=== PATIENT | female | born 1945 ===

== ENCOUNTER 2023-01-31 13:05 | Inpatient (IN) | payer OTHER ==
[2023-01-31] MEDS ORDERED: HALOPERIDOL LACTATE 5 MG/ML IM ONE ×4 (13:43→14:07)
[2023-01-31] MEDS ORDERED: LORazepam 2 MG/ML SDV VIAL IM ONE (14:29)
[2023-01-31 16:12] LABS: BASO % 0.1 % (0-2.0); EOS % 0.1 % (0-4.5); HEMATOCRIT 46.8 % (32.4-45.2); HEMOGLOBIN 15.4 GM/dL (10.7-15.3); LYMPH % 11.1 % (8-40); MCHC 32.9 g/dl (32.0-36.0); MEAN CELL VOLUME 91.2 fl (80-96); MEAN PLT VOLUME 9.6 fl (7.5-11.1); MONO % 13.4 % (3.8-10.2); NEUT % 75.3 % (42.8-82.8); PLATELET COUNT 296 10^3/uL (134-434); RBC 5.14 M/mm3 (3.60-5.2); RDW 14.3 % (11.6-15.6); WHITE BLOOD COUNT 11.8 K/mm3 (4.0-10.0)
[2023-01-31 16:19] LABS: EPI CELLS 13 /uL (0-25.1); HYALINE CASTS 5 /uL (0-3.1); URINE APPEARANCE CLOUDY; URINE BILIRUBIN 2+ (NEGATIVE); URINE COLOR ORANGE; URINE GLUCOSE (UA) NEGATIVE (NEGATIVE); URINE KETONE NEGATIVE (NEGATIVE); URINE LEUK ESTERASE 2+ (NEGATIVE); URINE NITRITE POSITIVE (NEGATIVE); URINE PROTEIN TRACE (NEGATIVE); URINE RBC 29 /uL (0-23.9); URINE WBC 33 /uL (0-25.8)
[2023-01-31 16:50] LABS: URINE BACTERIA 3.1 /uL (0-1359)
[2023-01-31 17:43] LABS: CHLORIDE 107 mmol/L (98-107); SODIUM 138 mmol/L (136-145)
[2023-01-31 17:47] LABS: ALBUMIN 3.2 g/dl (3.4-5.0); BLOOD UREA NITROGEN 77.2 mg/dL (7-18); CALCIUM 9.6 mg/dL (8.5-10.1); CO2 16 mmol/L (21-32); GLUCOSE,RANDOM 124 mg/dL (74-106)
[2023-01-31 17:50] LABS: CREATININE 4.1 mg/dL (0.55-1.3); SGOT/AST 120 U/L (15-37); SGPT/ALT 46 U/L (13-61)
[2023-01-31 17:52] LABS: TOT PROT 7.8 g/dl (6.4-8.2)
[2023-01-31 17:53] LABS: ALK PHOS 80 U/L (45-117)
[2023-01-31 17:55] LABS: ANION GAP 15 MMOL/L (8-16); POTASSIUM 7.4 mmol/L (3.5-5.1)
[2023-01-31 19:20] LABS: CHLORIDE 106 mmol/L (98-107); SODIUM 138 mmol/L (136-145)
[2023-01-31 19:23] LABS: BLOOD UREA NITROGEN 79.1 mg/dL (7-18); CO2 19 mmol/L (21-32); GLUCOSE,RANDOM 134 mg/dL (74-106)
[2023-01-31 19:24] LABS: CALCIUM 9.3 mg/dL (8.5-10.1); MAGNESIUM 3.6 mg/dL (1.8-2.4)
[2023-01-31] MEDS ORDERED: SODIUM CHLORIDE 0.9% 500 ML INFUS.BAG IV ONE (19:24)
[2023-01-31 19:27] LABS: CREATININE 4.4 mg/dL (0.55-1.3)
[2023-01-31 20:00] LABS: ANION GAP 13 MMOL/L (8-16); POTASSIUM 7.9 mmol/L (3.5-5.1)
[2023-01-31 20:35] LABS: LACTIC ACID 4.8 mmol/L (0.4-2.0)
[2023-01-31] MEDS ORDERED: CALCIUM GLUC IN NACL, ISO-OSM 1 GM/50 ML BAG IVPB ONE ×2 (20:38→21:10)
[2023-01-31] MEDS ORDERED: ALBUTEROL SO4 0.5 % INH SOLN 2.5 MG/0.5 ML VIAL.NEB. NEB ONE ×2 (20:39→21:30)
[2023-01-31] MEDS ORDERED: DEXTROSE 50%-WATER 25 GM/50 ML DISP.SYRIN IVPUSH PRN (20:40)
[2023-01-31] MEDS ORDERED: INSULIN REGULAR HUMAN 100 UNITS/ML *VIAL IVPUSH ONE ×2 (20:40→21:06)
[2023-01-31] MEDS ORDERED: ALBUTEROL SO4 0.083% IH SOL 2.5 MG/3 ML VIAL.NEB. NEB ONE (21:10)
[2023-01-31] MEDS ORDERED: DEXTROSE 50%-WATER 25 GM/50 ML DISP.SYRIN ONE (21:10)
[2023-01-31 21:22] LABS: INR 1.1 (0.83-1.09); PROTHROMBIN TIME (PATIENT) 12.7 SEC (9.7-13.0)
[2023-01-31 21:25] LABS: ACTIVATED PTT 26.2 SECONDS (25.2-36.5)
[2023-01-31] MEDS ORDERED: ALBUTEROL SO4 0.083% IH SOL 2.5 MG/3 ML VIAL.NEB. NEB PRN (22:02)
[2023-02-01 00:05] LABS: VENOUS BASE EXCESS -7.7 mmol/L (-2-2); VENOUS O2 SATURATION 31.7 % (70-80); VENOUS PCO2 37.7 mmHg (38-52); VENOUS PH 7.298 (7.310-7.410)
[2023-02-01] MEDS ORDERED: LEVOTHYROXINE SODIUM 100 MCG 5 ML VIAL IVPUSH ONE (00:07)
[2023-02-01 00:21] LABS: CHLORIDE 110 mmol/L (98-107); SODIUM 141 mmol/L (136-145)
[2023-02-01 00:22] LABS: CALCIUM 9.1 mg/dL (8.5-10.1)
[2023-02-01 00:23] LABS: GLUCOSE,RANDOM 115 mg/dL (74-106)
[2023-02-01 00:27] LABS: CREATININE 4.4 mg/dL (0.55-1.3)
[2023-02-01 00:32] LABS: LACTIC ACID 3.7 mmol/L (0.4-2.0)
[2023-02-01] MEDS ORDERED: LACTATED RINGERS SOLUTION 1000 ML INFUS.BAG IV ONE (00:47)
[2023-02-01 01:10] LABS: CO2 17 mmol/L (21-32)
[2023-02-01 01:14] LABS: ANION GAP 14 MMOL/L (8-16); POTASSIUM 7.2 mmol/L (3.5-5.1)
[2023-02-01] MEDS ORDERED: DEXTROSE 50%-WATER 25 GM/50 ML DISP.SYRIN IVPUSH ONE (01:34)
[2023-02-01] MEDS ORDERED: INSULIN REGULAR HUMAN 100 UNITS/ML *VIAL IVPUSH ONE (01:35)
[2023-02-01] MEDS ORDERED: CALCIUM GLUCONATE 10% - 1,000 MG/10 ML VIAL IVPB ONE (01:36)
[2023-02-01] MEDS ORDERED: CALCIUM CHLORIDE 1 GM/10 ML *DISP.SYRIN ONE (01:48)
[2023-02-01] MEDS ORDERED: DEXTROSE 5%-WATER 100 ML IVPB ONE (01:49)
[2023-02-01] MEDS ORDERED: CALCIUM GLUC IN NACL, ISO-OSM 1 GM/50 ML BAG IVPB ONE (01:52)
[2023-02-01] MEDS ORDERED: DEXTROSE 50%-WATER 25 GM/50 ML DISP.SYRIN ONE (01:52)
[2023-02-01] MEDS: PIPERACILLIN/TAZOB 2.25 GM 2.25 GM in DEXTROSE 5%-WATER - 50 ML IVPB SCH ×4 (04:00→20:47)
[2023-02-01] MEDS ORDERED: SODIUM CHLORIDE 1,000 ML IV SCH (06:45)
[2023-02-01] MEDS ORDERED: LEVOTHYROXINE SODIUM 100 MCG 5 ML VIAL IVPUSH SCH (07:00)
[2023-02-01] MEDS ORDERED: LEVOTHYROXINE NA 75 MCG TABLET (FP) PO SCH (07:00)
[2023-02-01] MEDS: HEPARIN NA (PORCINE) 5,000 UNITS/ML 1ML VIAL SQ SCH ×3 (07:17→21:07)
[2023-02-01] MEDS ORDERED: SODIUM CHLORIDE 0.9% 500 ML INFUS.BAG IV ONE (09:10)
[2023-02-01] MEDS ORDERED: SODIUM CHLORIDE 1,000 ML IV STA (09:40)
[2023-02-01] MEDS ORDERED: SODIUM ZIRCONIUM CYCLOSILICATE (LOKELMA) 5 GM PACKET PO SCH (10:00)
[2023-02-01] MEDS: SODIUM CHLORIDE 0.45% 1,000 ML IV SCH (10:58)
[2023-02-01 12:23] LABS: HEMATOCRIT 37.4 % (32.4-45.2); HEMOGLOBIN 12.5 GM/dL (10.7-15.3); MCH 30.4 pg (25.7-33.7); MCHC 33.3 g/dl (32.0-36.0); MEAN CELL VOLUME 91.2 fl (80-96); MEAN PLT VOLUME 9.7 fl (7.5-11.1); PLATELET COUNT 217 10^3/uL (134-434); RDW 14.6 % (11.6-15.6); WHITE BLOOD COUNT 8.3 K/mm3 (4.0-10.0)
[2023-02-01 12:30] LABS: INR 1.07 (0.83-1.09); PROTHROMBIN TIME (PATIENT) 12.4 SEC (9.7-13.0)
[2023-02-01 12:47] LABS: ANISOCYTOSIS 1+; MACROCYTOSIS 1+
[2023-02-01] MEDS: VANCOMYCIN ORAL SOLUTION 125 MG/2.5 ML PO SCH ×2 (12:49→18:48)
[2023-02-01 12:51] LABS: CHLORIDE 112 mmol/L (98-107); SODIUM 142 mmol/L (136-145)
[2023-02-01 12:55] LABS: BLOOD UREA NITROGEN 83.3 mg/dL (7-18); CO2 18 mmol/L (21-32); GLUCOSE,RANDOM 98 mg/dL (74-106); MAGNESIUM 2.8 mg/dL (1.8-2.4)
[2023-02-01 12:58] LABS: CREATININE 3.9 mg/dL (0.55-1.3); PHOSPHOROUS 3.8 mg/dL (2.5-4.9); SGOT/AST 96 U/L (15-37); SGPT/ALT 33 U/L (13-61)
[2023-02-01 12:59] LABS: BILIRUBIN,TOTAL 0.7 mg/dL (0.2-1)
[2023-02-01 13:01] LABS: ALK PHOS 59 U/L (45-117)
[2023-02-01 13:18] LABS: ALBUMIN 2.3 g/dl (3.4-5.0); ANION GAP 12 MMOL/L (8-16); CALCIUM 10.8 mg/dL (8.5-10.1); LACTIC ACID 4.4 mmol/L (0.4-2.0); POTASSIUM 6.2 mmol/L (3.5-5.1)
[2023-02-01] MEDS ORDERED: SODIUM CHLORIDE 500 ML IV STA (13:35)
[2023-02-01] MEDS ORDERED: SODIUM BICARBONATE 8.4% 50 MEQ/50 ML DISP.SYRIN IVPUSH ONE (13:35)
[2023-02-01] MEDS: SODIUM ZIRCONIUM CYCLOSILICATE (LOKELMA) 5 GM PACKET PO SCH ×3 (14:32→21:07)
[2023-02-01] MEDS ORDERED: SODIUM BICARBONATE 8.4% - 50 MEQ in DEXTROSE 5%-WATER - 50 ML IVPB ONE (15:00)
[2023-02-01] MEDS ORDERED: SODIUM ZIRCONIUM CYCLOSILICATE (LOKELMA) 5 GM PACKET PO ONE (20:39)
[2023-02-02] MEDS: VANCOMYCIN ORAL SOLUTION 125 MG/2.5 ML PO SCH ×3 (00:17→12:23)
[2023-02-02] MEDS: SODIUM CHLORIDE 0.45% 1,000 ML IV SCH ×2 (00:17→12:24)
[2023-02-02] MEDS: PIPERACILLIN/TAZOB 2.25 GM 2.25 GM in DEXTROSE 5%-WATER - 50 ML IVPB SCH ×5 (02:22→23:41)
[2023-02-02] MEDS: HEPARIN NA (PORCINE) 5,000 UNITS/ML 1ML VIAL SQ SCH ×3 (05:43→23:42)
[2023-02-02] MEDS ORDERED: LEVOTHYROXINE SODIUM 100 MCG 5 ML VIAL IVPUSH SCH (07:00)
[2023-02-02 08:29] LABS: HEMATOCRIT 32.1 % (32.4-45.2); HEMOGLOBIN 10.7 GM/dL (10.7-15.3); MCH 30.2 pg (25.7-33.7); MCHC 33.4 g/dl (32.0-36.0); MEAN CELL VOLUME 90.4 fl (80-96); PLATELET COUNT 176 10^3/uL (134-434); RBC 3.55 M/mm3 (3.60-5.2); RDW 14.3 % (11.6-15.6); WHITE BLOOD COUNT 6.6 K/mm3 (4.0-10.0)
[2023-02-02 08:48] LABS: POTASSIUM 3.9 mmol/L (3.5-5.1)
[2023-02-02 08:57] LABS: ALBUMIN 2.3 g/dl (3.4-5.0); BLOOD UREA NITROGEN 65.8 mg/dL (7-18); MAGNESIUM 2.7 mg/dL (1.8-2.4)
[2023-02-02 09:01] LABS: BILIRUBIN,TOTAL 0.5 mg/dL (0.2-1); CREATININE 2.9 mg/dL (0.55-1.3); PHOSPHOROUS 3.6 mg/dL (2.5-4.9); TOT PROT 5.7 g/dl (6.4-8.2)
[2023-02-02 09:06] LABS: CALCIUM 7.7 mg/dL (8.5-10.1)
[2023-02-02] MEDS ORDERED: LORazepam 2 MG/ML SDV VIAL IVPUSH PRN (12:14)
[2023-02-02] MEDS: SODIUM ZIRCONIUM CYCLOSILICATE (LOKELMA) 5 GM PACKET PO SCH ×2 (12:24→23:42)
[2023-02-02 12:26] LABS: ERYTHROCYTE SEDIMENTATION RATE 101 mm/hr (0-30)
[2023-02-02] MEDS ORDERED: SODIUM CHLORIDE 0.45% 1,000 ML IV SCH (12:32)
[2023-02-03] MEDS: PIPERACILLIN/TAZOB 2.25 GM 2.25 GM in DEXTROSE 5%-WATER - 50 ML IVPB SCH ×4 (03:10→23:08)
[2023-02-03] MEDS: LIOTHYRONINE SODIUM 5 MCG TABLET PO SCH (06:41)
[2023-02-03] MEDS: HEPARIN NA (PORCINE) 5,000 UNITS/ML 1ML VIAL SQ SCH ×3 (06:41→23:12)
[2023-02-03] MEDS: LEVOTHYROXINE SODIUM 100 MCG 5 ML VIAL IVPUSH SCH (06:41)
[2023-02-03 07:43] LABS: INR 1.08 (0.83-1.09); PROTHROMBIN TIME (PATIENT) 12.5 SEC (9.7-13.0)
[2023-02-03 07:52] LABS: POTASSIUM 3.4 mmol/L (3.5-5.1)
[2023-02-03 07:54] LABS: CALCIUM 7.8 mg/dL (8.5-10.1)
[2023-02-03 07:55] LABS: ALBUMIN 2.3 g/dl (3.4-5.0); BLOOD UREA NITROGEN 47.3 mg/dL (7-18)
[2023-02-03 07:59] LABS: TOT PROT 5.8 g/dl (6.4-8.2)
[2023-02-03 08:00] LABS: BILIRUBIN,TOTAL 0.4 mg/dL (0.2-1)
[2023-02-03 08:09] LABS: HEMATOCRIT 31.1 % (32.4-45.2); HEMOGLOBIN 10.1 GM/dL (10.7-15.3); MCH 30.2 pg (25.7-33.7); MCHC 32.6 g/dl (32.0-36.0); MEAN CELL VOLUME 92.7 fl (80-96); MEAN PLT VOLUME 9.9 fl (7.5-11.1); PLATELET COUNT 172 10^3/uL (134-434); RBC 3.36 M/mm3 (3.60-5.2); RDW 14.3 % (11.6-15.6); WHITE BLOOD COUNT 7.4 K/mm3 (4.0-10.0)
[2023-02-03 09:20] LABS: ANISOCYTOSIS 0; MACROCYTOSIS 0
[2023-02-03] MEDS: SODIUM ZIRCONIUM CYCLOSILICATE (LOKELMA) 5 GM PACKET PO SCH (10:14)
[2023-02-03] MEDS: SODIUM CHLORIDE 0.45% 1,000 ML IV SCH (14:32)
[2023-02-04] MEDS: PIPERACILLIN/TAZOB 2.25 GM 2.25 GM in DEXTROSE 5%-WATER - 50 ML IVPB SCH ×4 (04:10→20:58)
[2023-02-04] MEDS: HEPARIN NA (PORCINE) 5,000 UNITS/ML 1ML VIAL SQ SCH ×3 (05:48→22:31)
[2023-02-04] MEDS: LEVOTHYROXINE SODIUM 100 MCG 5 ML VIAL IVPUSH SCH (05:59)
[2023-02-04] MEDS: LIOTHYRONINE SODIUM 5 MCG TABLET PO SCH (05:59)
[2023-02-04] MEDS: SODIUM CHLORIDE 0.45% 1,000 ML IV SCH ×2 (14:36→20:58)
[2023-02-04] MEDS ORDERED: ALBUTEROL SO4 0.083% IH SOL 2.5 MG/3 ML VIAL.NEB. NEB PRN (21:39)
[2023-02-04] MEDS ORDERED: LORazepam 2 MG/ML SDV VIAL IVPUSH PRN (21:39)
[2023-02-05] MEDS: SODIUM CHLORIDE 0.45% 1,000 ML IV SCH ×3 (01:28→21:18)
[2023-02-05] MEDS: PIPERACILLIN/TAZOB 2.25 GM 2.25 GM in DEXTROSE 5%-WATER - 50 ML IVPB SCH ×4 (02:30→21:18)
[2023-02-05] MEDS: HEPARIN NA (PORCINE) 5,000 UNITS/ML 1ML VIAL SQ SCH ×3 (05:55→21:18)
[2023-02-05] MEDS: LEVOTHYROXINE SODIUM 100 MCG 5 ML VIAL IVPUSH SCH (07:04)
[2023-02-05] MEDS: LIOTHYRONINE SODIUM 5 MCG TABLET PO SCH (07:04)
[2023-02-05 16:06] LABS: BASO % 0.2 % (0-2.0); EOS % 0.5 % (0-4.5); HEMATOCRIT 31.9 % (32.4-45.2); HEMOGLOBIN 10.5 GM/dL (10.7-15.3); LYMPH % 10.2 % (8-40); MCH 29.6 pg (25.7-33.7); MEAN CELL VOLUME 89.7 fl (80-96); MEAN PLT VOLUME 8.5 fl (7.5-11.1); MONO % 2.3 % (3.8-10.2); NEUT % 86.8 % (42.8-82.8); PLATELET COUNT 203 10^3/uL (134-434); RBC 3.56 M/mm3 (3.60-5.2); RDW 14.5 % (11.6-15.6); WHITE BLOOD COUNT 10.9 K/mm3 (4.0-10.0)
[2023-02-05 16:22] LABS: POTASSIUM 3.2 mmol/L (3.5-5.1)
[2023-02-05 16:24] LABS: ALBUMIN 2.2 g/dl (3.4-5.0); BLOOD UREA NITROGEN 22.7 mg/dL (7-18); CALCIUM 7.6 mg/dL (8.5-10.1)
[2023-02-05 16:28] LABS: CREATININE 1.5 mg/dL (0.55-1.3)
[2023-02-05 16:29] LABS: BILIRUBIN,TOTAL 0.4 mg/dL (0.2-1); TOT PROT 5.9 g/dl (6.4-8.2)
[2023-02-05 16:56] LABS: ANISOCYTOSIS 1+; MACROCYTOSIS 0
[2023-02-05 21:57] VITALS: BMI 30.7
[2023-02-06] MEDS: PIPERACILLIN/TAZOB 2.25 GM 2.25 GM in DEXTROSE 5%-WATER - 50 ML IVPB SCH ×4 (02:04→21:32)
[2023-02-06] MEDS: HEPARIN NA (PORCINE) 5,000 UNITS/ML 1ML VIAL SQ SCH ×3 (06:49→21:32)
[2023-02-06] MEDS: LEVOTHYROXINE SODIUM 100 MCG 5 ML VIAL IVPUSH SCH (06:50)
[2023-02-06] MEDS: LIOTHYRONINE SODIUM 5 MCG TABLET PO SCH (06:50)
[2023-02-06] MEDS: TAMSULOSIN HCL 0.4 MG CAP PO SCH (14:36)
[2023-02-06] MEDS ORDERED: KCL 10 MEQ IVPB 10 MEQ/100 ML INFUS.BAG IVPB SCH (14:45)
[2023-02-06] MEDS ORDERED: SODIUM CHLORIDE 0.45% 1,000 ML with POTASSIUM CHLORIDE 10 MEQ IV SCH (15:00)
[2023-02-06 15:16] LABS: CHLORIDE 112 mmol/L (98-107); SODIUM 142 mmol/L (136-145)
[2023-02-06 15:18] LABS: CALCIUM 7.5 mg/dL (8.5-10.1)
[2023-02-06 15:19] LABS: BLOOD UREA NITROGEN 16.4 mg/dL (7-18); CO2 22 mmol/L (21-32); GLUCOSE,RANDOM 90 mg/dL (74-106)
[2023-02-06 15:22] LABS: CREATININE 1.6 mg/dL (0.55-1.3); SGOT/AST 38 U/L (15-37); SGPT/ALT 27 U/L (13-61)
[2023-02-06 15:23] LABS: TOT PROT 5.7 g/dl (6.4-8.2)
[2023-02-06 15:24] LABS: BILIRUBIN,TOTAL 0.4 mg/dL (0.2-1)
[2023-02-06 15:25] LABS: ALK PHOS 63 U/L (45-117)
[2023-02-06 15:32] LABS: ANION GAP 8 MMOL/L (8-16); POTASSIUM 2.5 mmol/L (3.5-5.1)
[2023-02-06] MEDS ORDERED: POTASSIUM CHLORIDE TABS 20 MEQ TABLET.ER (FP) PO ONE ×2 (16:00→18:00)
[2023-02-06] MEDS: POTASSIUM CHLORIDE 10 MEQ in SODIUM CHLORIDE 0.45% 1,000 ML IV SCH (16:21)
[2023-02-07] MEDS: PIPERACILLIN/TAZOB 2.25 GM 2.25 GM in DEXTROSE 5%-WATER - 50 ML IVPB SCH ×2 (02:07→08:51)
[2023-02-07] MEDS: POTASSIUM CHLORIDE 10 MEQ in SODIUM CHLORIDE 0.45% 1,000 ML IV SCH ×2 (02:58→06:29)
[2023-02-07] MEDS: HEPARIN NA (PORCINE) 5,000 UNITS/ML 1ML VIAL SQ SCH ×3 (06:13→21:34)
[2023-02-07] MEDS: LEVOTHYROXINE SODIUM 100 MCG 5 ML VIAL IVPUSH SCH (06:14)
[2023-02-07] MEDS: LIOTHYRONINE SODIUM 5 MCG TABLET PO SCH (06:27)
[2023-02-07] MEDS: TAMSULOSIN HCL 0.4 MG CAP PO SCH (08:52)
[2023-02-07 12:52] LABS: CHLORIDE 113 mmol/L (98-107); SODIUM 144 mmol/L (136-145)
[2023-02-07 12:54] LABS: CALCIUM 7.4 mg/dL (8.5-10.1)
[2023-02-07 12:55] LABS: BLOOD UREA NITROGEN 13.1 mg/dL (7-18); CO2 23 mmol/L (21-32); GLUCOSE,RANDOM 93 mg/dL (74-106)
[2023-02-07 12:58] LABS: CREATININE 1.5 mg/dL (0.55-1.3)
[2023-02-07 13:02] LABS: ANION GAP 9 MMOL/L (8-16); POTASSIUM 2.9 mmol/L (3.5-5.1)
[2023-02-07] MEDS ORDERED: POTASSIUM CHLORIDE ORAL LIQUID 20 MEQ/15 ML PO ONE (13:45)
[2023-02-07] MEDS: KCL 10 MEQ IVPB 10 MEQ/100 ML INFUS.BAG IVPB SCH ×3 (16:43→19:26)
[2023-02-08] MEDS: LEVOTHYROXINE SODIUM 100 MCG 5 ML VIAL IVPUSH SCH (06:18)
[2023-02-08] MEDS: LIOTHYRONINE SODIUM 5 MCG TABLET PO SCH (06:18)
[2023-02-08] MEDS: HEPARIN NA (PORCINE) 5,000 UNITS/ML 1ML VIAL SQ SCH ×3 (06:19→22:34)
[2023-02-08] MEDS: TAMSULOSIN HCL 0.4 MG CAP PO SCH (08:28)
[2023-02-08 09:02] LABS: BASO % 0.4 % (0-2.0); EOS % 1.1 % (0-4.5); HEMATOCRIT 32.7 % (32.4-45.2); HEMOGLOBIN 10.8 GM/dL (10.7-15.3); LYMPH % 16.7 % (8-40); MCH 29.7 pg (25.7-33.7); MEAN CELL VOLUME 90.1 fl (80-96); MEAN PLT VOLUME 8.6 fl (7.5-11.1); MONO % 6.8 % (3.8-10.2); PLATELET COUNT 318 10^3/uL (134-434); RBC 3.62 M/mm3 (3.60-5.2); RDW 13.7 % (11.6-15.6)
[2023-02-08 09:18] LABS: POTASSIUM 3.2 mmol/L (3.5-5.1)
[2023-02-08 09:24] LABS: CALCIUM 7.6 mg/dL (8.5-10.1)
[2023-02-08 09:25] LABS: ALBUMIN 1.9 g/dl (3.4-5.0); BLOOD UREA NITROGEN 9.7 mg/dL (7-18); MAGNESIUM 1.7 mg/dL (1.8-2.4)
[2023-02-08 09:28] LABS: CREATININE 1.2 mg/dL (0.55-1.3)
[2023-02-08 09:30] LABS: BILIRUBIN,TOTAL 0.3 mg/dL (0.2-1); TOT PROT 5.7 g/dl (6.4-8.2)
[2023-02-08] MEDS ORDERED: POTASSIUM CHLORIDE ORAL LIQUID 20 MEQ/15 ML PO ONE (11:00)
[2023-02-08] MEDS ORDERED: POTASSIUM CHLORIDE TABS 20 MEQ TABLET.ER (FP) PO ONE (11:45)
[2023-02-08] MEDS ORDERED: MAGNESIUM 2GM/50ML STERILE WATER IVPB IVPB ONE (11:45)
[2023-02-09] MEDS: HEPARIN NA (PORCINE) 5,000 UNITS/ML 1ML VIAL SQ SCH (06:49)
[2023-02-09] MEDS: LIOTHYRONINE SODIUM 5 MCG TABLET PO SCH (06:52)
[2023-02-09] MEDS ORDERED: LEVOTHYROXINE NA 75 MCG TABLET (FP) PO SCH (07:00)
[2023-02-09] MEDS: TAMSULOSIN HCL 0.4 MG CAP PO SCH (11:02)
[2023-02-09] MEDS ORDERED: POTASSIUM CHLORIDE TABS 20 MEQ TABLET.ER (FP) PO ONE (12:24)
[2023-02-09 13:07] VITALS: BP 119/67; PULSE 95; RESP 20; TEMP 98.2
== END 2023-02-09 12:30 | DRG 872 ==
LOC: JER 13:05 → JERBED 02-01 00:23 → J4W 02-01 03:32 → J8W 02-04 21:31
PROVIDERS: ADMIT Internal Medicine; ATTEND Internal Medicine
DX: A41.9 Sepsis, unspecified organism (principal); R57.9 Shock, unspecified; N39.0 Urinary tract infection, site not specified; E87.20 Acidosis, unspecified; N17.9 Acute kidney failure, unspecified; R65.20 Severe sepsis without septic shock; K52.9 Noninfective gastroenteritis and colitis, unspecified; E78.5 Hyperlipidemia, unspecified; I10 Essential (primary) hypertension; F03.90 Unspecified dementia, unspecified severity, without behavioral disturbance, psychotic disturbance, mood disturbance, and anxiety; F31.9 Bipolar disorder, unspecified; E87.5 Hyperkalemia; E86.0 Dehydration; E03.9 Hypothyroidism, unspecified; F20.9 Schizophrenia, unspecified
CPT/HCPCS: 0241U-QW; 36415; 70450-TC; 71045-TC-FY; 74018-TC-FY; 74176-TC; 76775-TC; 76856-TC; 80048; 80053; 81003; 82550; 82553; 82803; 82962; 83605; 83735; 84100; 84439; 84443; 84484; 85025; 85027; 85610; 85651; 85730; 86140; 86704; 86708; 86709; 86803; 86850; 86900; 86901; 87040; 87086; 87186; 87209; 87324; 87340; 87449; 87517; 87635; 87798; 93005; 93010; 93925-TC; 93971-TC; 99291; J1644

== ENCOUNTER 2024-02-25 09:27 | Inpatient (IN) | payer OTHER ==
[2024-02-25 11:08] LABS: BASO % 0.6 % (0-2.0); HEMATOCRIT 29.2 % (32.4-45.2); HEMOGLOBIN 9.7 GM/dL (10.7-15.3); LYMPH % 25.9 % (8-40); MCH 29.2 pg (25.7-33.7); MCHC 33.1 g/dl (32.0-36.0); MEAN CELL VOLUME 88.3 fl (80-96); MONO % 8.9 % (3.8-10.2); NEUT % 61.6 % (42.8-82.8); PLATELET COUNT 304 10^3/uL (134-434); RBC 3.31 M/mm3 (3.60-5.2); RDW 13.8 % (11.6-15.6); WHITE BLOOD COUNT 10.2 K/mm3 (4.0-10.0)
[2024-02-25] MEDS ORDERED: ACETAMINOPHEN INJECTION 100 ML ONE (11:09)
[2024-02-25] MEDS: ACETAMINOPHEN 1000 MG/100 ML BAG IVPB ONE (11:13)
[2024-02-25 11:34] LABS: POTASSIUM 4.3 mmol/L (3.5-5.1)
[2024-02-25 11:36] LABS: BLOOD UREA NITROGEN 23.9 mg/dL (7-18); CALCIUM 9.1 mg/dL (8.5-10.1)
[2024-02-25 11:41] LABS: BILIRUBIN,TOTAL 0.5 mg/dL (0.2-1); TOT PROT 7.2 g/dl (6.4-8.2)
[2024-02-25 11:49] LABS: EPI CELLS 4 /uL (0-25.1); HYALINE CASTS 1 /uL (0-3.1); PH,URINE 6.5 (5.0-8.0); URINE APPEARANCE CLEAR; URINE BACTERIA 14 /uL (0-1359); URINE BILIRUBIN NEGATIVE (NEGATIVE); URINE COLOR YELLOW; URINE GLUCOSE (UA) NEGATIVE (NEGATIVE); URINE KETONE NEGATIVE (NEGATIVE); URINE LEUK ESTERASE NEGATIVE (NEGATIVE); URINE NITRITE NEGATIVE (NEGATIVE); URINE PROTEIN NEGATIVE (NEGATIVE); URINE RBC 11 /uL (0-23.9); URINE UROBILINOGEN 0.2 mg/dL (0.2-1.0); URINE WBC 2 /uL (0-25.8)
[2024-02-25] MEDS ORDERED: HALOPERIDOL LACTATE 5 MG/ML ONE ×2 (12:18→19:50)
[2024-02-25] MEDS: HALOPERIDOL LACTATE 5 MG/ML IM ONE ×2 (12:37→20:03)
[2024-02-25] MEDS ORDERED: KETAMINE HCL 200 MG/20 ML VIAL ONE (15:30)
[2024-02-25] MEDS: KETAMINE HCL 200 MG/20 ML VIAL IVPUSH ONE (17:33)
[2024-02-25] MEDS ORDERED: MIDAZOLAM HCL 5 MG/1 ML Single Dose Vial ONE ×3 (17:35→20:59)
[2024-02-25] MEDS: MIDAZOLAM HCL 5 MG/1 ML Single Dose Vial IVPUSH ONE ×3 (18:06→21:31)
[2024-02-25] MEDS ORDERED: CEFTRIAXONE 1 GM/50 ML BAG ONE (18:58)
[2024-02-25] MEDS: CEFTRIAXONE 1 GM in DEXTROSE 5%-WATER - 100 ML IVPB ONE (19:05)
[2024-02-25] MEDS ORDERED: BACITRACIN 0.9 GM PACKET ONE (21:02)
[2024-02-25] MEDS: MIDAZOLAM HCL 5 MG/1 ML Single Dose Vial IM ONE (21:04)
[2024-02-25] MEDS ORDERED: AZITHROMYCIN IVPB 500 MG/250 ML BAG IVPB ONE (23:08)
[2024-02-25] MEDS: AZITHROMYCIN IVPB 500 MG in DEXTROSE 5%-WATER - 250 ML IVPB ONE (23:16)
[2024-02-26] MEDS ORDERED: FUROSEMIDE 40 MG/4 ML INJECTABLE VIAL ONE ×2 (02:55→11:11)
[2024-02-26] MEDS: FUROSEMIDE 40 MG/4 ML INJECTABLE VIAL IVPUSH ONE (03:05)
[2024-02-26] MEDS: LEVOTHYROXINE NA 100 MCG TABLET (FP) PO SCH (08:00)
[2024-02-26] MEDS ORDERED: HALOPERIDOL LACTATE 5 MG/ML ONE ×2 (08:42→20:41)
[2024-02-26] MEDS: HALOPERIDOL LACTATE 5 MG/ML IM PRN (08:45)
[2024-02-26 09:09] LABS: BASO % 0.7 % (0-2.0); EOS % 6.1 % (0-4.5); HEMATOCRIT 31.7 % (32.4-45.2); HEMOGLOBIN 10.2 GM/dL (10.7-15.3); MCH 28.9 pg (25.7-33.7); MCHC 32.2 g/dl (32.0-36.0); MEAN CELL VOLUME 89.6 fl (80-96); MEAN PLT VOLUME 8.2 fl (7.5-11.1); MONO % 8.2 % (3.8-10.2); PLATELET COUNT 345 10^3/uL (134-434); RBC 3.54 M/mm3 (3.60-5.2); RDW 13.9 % (11.6-15.6); WHITE BLOOD COUNT 7.8 K/mm3 (4.0-10.0)
[2024-02-26 09:28] LABS: ALBUMIN 3.1 g/dl (3.4-5.0); MAGNESIUM 2.2 mg/dL (1.8-2.4)
[2024-02-26] MEDS: DEXTROSE 5%-NORMAL SALINE 1,000 ML IV SCH (09:30)
[2024-02-26] MEDS: SODIUM CHLORIDE 1,000 ML IV SCH (09:30)
[2024-02-26 09:33] LABS: BILIRUBIN,TOTAL 0.4 mg/dL (0.2-1); TOT PROT 7.4 g/dl (6.4-8.2)
[2024-02-26 09:53] LABS: N-TERMINAL BNP 362.5 pg/ml (5-450)
[2024-02-26] MEDS ORDERED: ENOXAPARIN NA (PORCINE) 40 MG/0.4 ML DISP.SYRIN SQ SCH (10:00)
[2024-02-26] MEDS ORDERED: AZITHROMYCIN IVPB 500 MG/250 ML BAG IVPB SCH (10:00)
[2024-02-26] MEDS ORDERED: QUEtiapine FUMARATE 50 MG TABLET PO SCH (10:00)
[2024-02-26] MEDS: ASPIRIN COATED 81 MG TABLET.EC PO SCH (10:33)
[2024-02-26] MEDS ORDERED: CEFTRIAXONE 1 GM/50 ML BAG ONE (11:11)
[2024-02-26] MEDS: CEFTRIAXONE 1 GM in DEXTROSE 5%-WATER - 50 ML IVPB SCH (11:14)
[2024-02-26] MEDS: FUROSEMIDE 40 MG/4 ML INJECTABLE VIAL IVPUSH SCH (11:14)
[2024-02-26] MEDS: LEVOTHYROXINE SODIUM 100 MCG 5 ML VIAL IVPUSH SCH (11:14)
[2024-02-26] MEDS ORDERED: ACETAMINOPHEN INJECTION 100 ML ONE (14:15)
[2024-02-26] MEDS: ACETAMINOPHEN 1000 MG/100 ML BAG IVPB PRN (14:21)
[2024-02-26] MEDS ORDERED: MIDAZOLAM HCL 5 MG/1 ML Single Dose Vial ONE (20:41)
[2024-02-26] MEDS: MIDAZOLAM HCL 5 MG/1 ML Single Dose Vial IVPUSH PRN (20:58)
[2024-02-26] MEDS: ATORVASTATIN CA 20 MG TABLET (FP) PO SCH (22:27)
[2024-02-27] MEDS ORDERED: HALOPERIDOL LACTATE 5 MG/ML ONE (03:26)
[2024-02-27] MEDS ORDERED: MIDAZOLAM HCL 5 MG/1 ML Single Dose Vial ONE (03:26)
[2024-02-27] MEDS ORDERED: FUROSEMIDE 40 MG/4 ML INJECTABLE VIAL ONE (10:16)
[2024-02-27] MEDS ORDERED: CEFTRIAXONE 1 GM/50 ML BAG ONE (10:16)
[2024-02-27] MEDS: LEVOTHYROXINE NA 100 MCG TABLET (FP) PO SCH (10:30)
[2024-02-27] MEDS: ACETAMINOPHEN 1000 MG/100 ML BAG IVPB PRN (20:53)
[2024-02-28] MEDS ORDERED: MIDAZOLAM HCL 5 MG/1 ML Single Dose Vial IVPUSH PRN (16:37)
[2024-02-28] MEDS ORDERED: HALOPERIDOL LACTATE 5 MG/ML IM PRN (16:37)
[2024-02-28] MEDS ORDERED: LORazepam 2 MG/ML SDV VIAL IVPUSH PRN (17:34)
[2024-02-29 08:56] LABS: POTASSIUM 3.4 mmol/L (3.5-5.1)
[2024-02-29 08:59] LABS: CALCIUM 8.8 mg/dL (8.5-10.1)
[2024-02-29 09:01] LABS: ALBUMIN 2.8 g/dl (3.4-5.0); BLOOD UREA NITROGEN 12.4 mg/dL (7-18)
[2024-02-29 09:02] LABS: CREATININE 0.9 mg/dL (0.55-1.3)
[2024-02-29 09:03] LABS: PHOSPHOROUS 2.5 mg/dL (2.5-4.9)
[2024-02-29 09:04] LABS: BILIRUBIN,TOTAL 0.5 mg/dL (0.2-1)
[2024-02-29 15:50] VITALS: BMI 26.9
[2024-03-01] MEDS: LEVOTHYROXINE NA 125 MCG TABLET (FP) PO SCH (06:42)
[2024-03-01 22:49] VITALS: BP 153/81; PULSE 98; RESP 20; TEMP 98.2
== END 2024-03-01 23:56 | DRG 644 ==
LOC: JER 09:27 → JERBED 19:19 → J7W 02-27 13:39
PROVIDERS: ADMIT Internal Medicine
DX: E03.2 Hypothyroidism due to medicaments and other exogenous substances (principal); F20.0 Paranoid schizophrenia; J98.11 Atelectasis; S02.2XXA Fracture of nasal bones, initial encounter for closed fracture; G30.9 Alzheimer's disease, unspecified; F02.80 Dementia in other diseases classified elsewhere, unspecified severity, without behavioral disturbance, psychotic disturbance, mood disturbance, and anxiety; E03.9 Hypothyroidism, unspecified; E78.5 Hyperlipidemia, unspecified; I10 Essential (primary) hypertension; I25.10 Atherosclerotic heart disease of native coronary artery without angina pectoris; W19.XXXA Unspecified fall, initial encounter; Y93.9 Activity, unspecified; Y92.89 Other specified places as the place of occurrence of the external cause; Y99.9 Unspecified external cause status
CPT/HCPCS: 36415; 70450-TC; 70486-TC; 71045-TC-FY; 71250-TC; 72125-TC; 72170-TC-FY; 80053; 81003; 82962; 83735; 83880; 84100; 84439; 84443; 84479; 84480; 84484; 85025; 87086; 93005; 93010; 93306-TC; 93970-TC; 97116-GP; 97161-GP; 99285-25; J0131